=== PATIENT | female | born 1975 | race Caucasian/White ===

== ENCOUNTER 2017-07-18 15:20 | Inpatient (IN) | payer OTHER ==
[2017-07-18 18:03] VITALS: BMI 24.2
--- NOTE | 2017-07-18 20:42 | HP ---
Admission ROS [facility] Chief Complaint: Seeking admission to Rehab Allergies/Adverse Reactions: Allergies Allergy/AdvReac Type Severity Reaction Status Date / Time Penicillins Allergy Severe Hives Verified 07/18/17 19:35 History of Present Illness: 41 years old female with history of cocaine and heroin dependence is seeking admission to rehab. Patient has been to previous rehab and reports a year of sobriety. Denies suicidal ideation at this time. Patient has medical of heart murmur, asthma, arthritis and depression. Patient is on methadone 125mg oral daily at [facility]. Dose is yet to be verified by the nurse. - Ebola screening Have you traveled outside of the country in the last 21 days: No Have you had contact with anyone from an Ebola affected area: No Have you been sick,other than usual withdrawal symptoms: No - Review of Systems Constitutional: No Symptoms Reported EENT: reports: No Symptoms Reported Respiratory: reports: No Symptoms reported Cardiac: reports: No Symptoms Reported GI: reports: No Symptoms Reported : reports: No Symptoms Reported Musculoskeletal: reports: No Symptoms Reported Integumentary: reports: No Symptoms Reported Neuro: reports: No Symptoms reported Endocrine: reports: No Symptoms Reported Hematology: reports: No Symptoms Reported Psychiatric: reports: No Sypmtoms Reported, Mood/Affect Appropiate, Orientated x3 Other Systems: Reviewed and Negative Patient History - Patient Medical History Hx Anemia: No Hx Asthma: Yes (MDI) Hx Chronic Obstructive Pulmonary Disease (COPD): No Hx Cancer: No Hx Cardiac Disorders: No Hx Congestive Heart Failure: No Hx Hypertension: No Hx Hypercholesterolemia: No HX Cerebrovascular Accident: No Hx Seizures: No Hx Diabetes: No Hx Gastrointestinal Disorders: No Hx Liver Disease: No Hx Genitourinary Disorders: No Hx Sexually Transmitted Disorders: No Hx Renal Disease (ESRD): No Hx Thyroid Disease: No Hx Human Immunodeficiency Virus (HIV): No (Negative 2016) Hx Hepatitis C: No Hx Depression: Yes Hx Suicide Attempt: Yes (Denies suicidal ideation) Hx Bipolar Disorder: Yes Hx Schizophrenia: No - Patient Surgical History Past Surgical History: Yes Hx Neurologic Surgery: No Hx Cataract Extraction: No Hx Cardiac Surgery: No Hx Lung Surgery: No Hx Breast Surgery: No Hx Breast Biopsy: No Hx Abdominal Surgery: No Hx Appendectomy: No Hx Cholecystectomy: No Hx Genitourinary Surgery: No Hx Section: Yes (2002) Hx Orthopedic Surgery: Yes (facial surgery) Hx Hysterectomy: No Anesthesia Reaction: No - PPD History Previous Implant?: Yes Documented Results: Negative w/o proof Implanted On Prior [facility] Admission?: No PPD to be Administered?: Yes - Reproductive History Patient is a Female of Child Bearing Age (11 -55 yrs old): No Last Menstrual Period: 06/16/17 Patient : No - Smoking Cessation Smoking history: Current every day smoker Have you smoked in the past 12 months: Yes Aproximately how many cigarettes per day: 10 Hx Chewing Tobacco Use: No Initiated information on smoking cessation: Yes 'Breaking Loose' booklet given: 07/18/17 - Substance & Tx. History Hx Alcohol Use: No Hx Substance Use: Yes Substance Use Type: Cocaine, Heroin Hx Substance Use Treatment: Yes ([facility]) - Substances Abused Cocaine Route: Smoking Frequency: Daily Amount used: $100 Age of first use: 25 Date of Last Use: 07/17/17 Heroin Route: Smoking Frequency: No use in 30 days Age of first use: 25 Date of Last Use: 02/27/17 Family Disease History - Family Disease History Family History: Denies Admission Physical Exam [facility] - Vital Signs Vital Signs: Vital Signs - 24 hr 07/18/17 18:01 Temperature 98.5 F Pulse Rate 72 Respiratory 18 Rate Blood Pressure 112/72 - Physical General Appearance: Yes: Within Normal Limits HEENTM: Yes: EOMI, Normal ENT Inspection, Normal Voice, TEODORO Respiratory: Yes: Lungs Clear, Normal Breath Sounds, No Respiratory Distress Neck: Yes: Supple Breast: Yes: Breast Exam Deferred Cardiology: Yes: Regular Rhythm, Regular Rate, S1, S2 Abdominal: Yes: Within Normal Limits Genitourinary: Yes: Within Normal Limits Back: Yes: Normal Inspection Extremities: Yes: Within Normal Limits Neurological: Yes: Alert, Normal Mood/Affect, Normal Response Integumentary: Yes: Dry Lymphatic: Yes: Within Normal Limits - Diagnostic (1) Cocaine dependence, uncomplicated Current Visit: Yes Status: Chronic (2) Methadone maintenance therapy patient Current Visit: Yes Status: Chronic (3) Asthma Current Visit: Yes Status: Chronic (4) Arthritis Current Visit: Yes Status: Chronic (5) Depression Current Visit: Yes Status: Chronic (6) Heart murmur Current Visit: Yes Status: Chronic Cleared for Admission [facility] - Detox or Rehab [facility] Level of Care: Observation Bed Claeared for Rehab Admission: Yes [facility] Breath Alcohol Content Breath Alcohol Content: 0 Urine Pregancy Test - Result Urine Test Results: Negative- NO Line Present Urine Drug Screen - Results Drug Screen Negative: No Urine Drug Screen Results: ELEUTERIO-Cocaine, MTD-Methadone Inpatient Rehab Admission - Initial Determination Are CD services needed?: Yes Free of communicable disease: Yes Not in need of hospitalization: Yes - Rehab Admission Criteria Previous failed treatment: Yes Poor recovery environment: Yes Comorbidities: Yes Lacks judgement: No Patient is meeting Inpatient Rehab admission criteria:: Yes
[2017-07-18] MEDS ORDERED: guaiFENesin/D-METHORPHAN HB 10 ML UNIT-DOSE CUPS PO PRN (20:55)
[2017-07-18] MEDS ORDERED: MAGNESIUM CITRATE 300 ML BOTTLE PO PRN (20:55)
[2017-07-18] MEDS ORDERED: MAGNESIUM HYDROX 2400MG/30ML ORAL SUSPENSION 30 ML CUP PO PRN (20:55)
[2017-07-18] MEDS ORDERED: LOPERAMIDE HCL 2 MG CAPSULE PO PRN (20:55)
[2017-07-18] MEDS ORDERED: MENTHOL/PHENOL 1 EACH UD MM PRN (20:55)
[2017-07-18] MEDS ORDERED: NICOTINE POLACRILEX 2 MG GUM BC PRN (20:55)
[2017-07-18] MEDS ORDERED: P-EPHED 60MG/TRIPROLIDI 2.5MG TABLET PO PRN (20:55)
[2017-07-18] MEDS ORDERED: TUBERCULIN PPD 5 TU/0.1ML VIAL ID ONE (23:03)
[2017-07-18] MEDS: THIAMINE HCL 100 MG TABLET (FP) PO SCH (23:32)
[2017-07-18] MEDS: IBUPROFEN 400 MG TABLET (FP) PO PRN (23:33)
[2017-07-18 23:40] LABS: URINE APPEARANCE TURBID; URINE BILIRUBIN NEGATIVE (NEGATIVE); URINE BLOOD NEGATIVE (NEGATIVE); URINE COLOR YELLOW; URINE GLUCOSE (UA) NEGATIVE (NEGATIVE); URINE KETONE NEGATIVE (NEGATIVE); URINE LEUK ESTERASE TRACE (NEGATIVE); URINE NITRITE NEGATIVE (NEGATIVE); URINE UROBILINOGEN NEGATIVE mg/dL (0.2-1.0)
[2017-07-18 23:45] LABS: URINE PROTEIN 1+ (NEGATIVE)
[2017-07-19] MEDS ORDERED: METHADONE HCL 10 MG TABLET PO SCH (09:30)
[2017-07-19] MEDS ORDERED: METHADONE HCL 10 MG TABLET ONE (09:36)
[2017-07-19] MEDS ORDERED: METHADONE HCL 40 MG DISPERSABLE TABLET ONE (09:37)
[2017-07-19 09:52] LABS: HEMATOCRIT 38.2 % (32.4-45.2); HEMOGLOBIN 12.1 GM/dL (10.7-15.3); MCH 28.5 pg (25.7-33.7); MCHC 31.5 g/dl (32.0-36.0); MEAN CELL VOLUME 90.2 fl (80-96); MEAN PLT VOLUME 8.2 fl (7.5-11.1); PLATELET COUNT 252 K/MM3 (134-434); RBC 4.24 M/mm3 (3.60-5.2); RDW 15.2 % (11.6-15.6); WHITE BLOOD COUNT 5.2 K/mm3 (4.0-10.0)
[2017-07-19] MEDS: NICOTINE 14 MG/24 HOURS TOPICAL PATCH TD SCH (09:57)
[2017-07-19] MEDS: PRENATAL VITAMINS W/ FOLIC ACID TABLET (FP) PO SCH (09:57)
[2017-07-19 10:02] LABS: ALBUMIN 3.1 g/dl (3.4-5.0); ANION GAP 6 (8-16); BLOOD UREA NITROGEN 13 mg/dL (7-18); CALCIUM 8.5 mg/dL (8.5-10.1); CHLORIDE 105 mmol/L (98-107); CO2 29 mmol/L (21-32); GLUCOSE,RANDOM 69 mg/dL (74-106); POTASSIUM 4.4 mmol/L (3.5-5.1); SODIUM 140 mmol/L (136-145)
[2017-07-19 10:07] LABS: ALK PHOS 88 U/L (45-117); BILIRUBIN,TOTAL 0.3 mg/dL (0.2-1.0); CREATININE 0.7 mg/dL (0.55-1.02); SGOT/AST 27 U/L (15-37); SGPT/ALT 21 U/L (12-78); TOT PROT 6.4 g/dl (6.4-8.2)
[2017-07-19] MEDS ORDERED: METHADONE 120 MG, METHADONE 5 MG PO SCH (10:30)
--- NOTE | 2017-07-19 15:26 | EKG ---
Test Reason : Blood Pressure : / mmHG Vent. Rate : 075 BPM Atrial Rate : 075 BPM P-R Int : 124 ms QRS Dur : 086 ms QT Int : 402 ms P-R-T Axes : 061 047 058 degrees QTc Int : 448 ms NORMAL SINUS RHYTHM NORMAL ECG NO PREVIOUS ECGS AVAILABLE Confirmed by Colton Shafer ([id number]) on 07/19/2017 3:26:22 PM Referred By: Confirmed By:Colton Shafer
[2017-07-19] MEDS: IBUPROFEN 400 MG TABLET (FP) PO PRN (16:53)
[2017-07-19] MEDS: THIAMINE HCL 100 MG TABLET (FP) PO SCH (21:17)
[2017-07-20] MEDS ORDERED: METHADONE HCL 5 MG TABLET ONE (05:19)
[2017-07-20] MEDS ORDERED: METHADONE HCL 40 MG DISPERSABLE TABLET ONE (05:20)
[2017-07-20] MEDS: METHADONE 120 MG, METHADONE 5 MG PO SCH (06:20)
[2017-07-20] MEDS: NICOTINE 14 MG/24 HOURS TOPICAL PATCH TD SCH (09:37)
[2017-07-20] MEDS: PRENATAL VITAMINS W/ FOLIC ACID TABLET (FP) PO SCH (09:37)
[2017-07-20] MEDS: THIAMINE HCL 100 MG TABLET (FP) PO SCH (21:23)
[2017-07-21] MEDS ORDERED: METHADONE HCL 5 MG TABLET ONE (03:11)
[2017-07-21] MEDS ORDERED: METHADONE HCL 40 MG DISPERSABLE TABLET ONE (03:11)
[2017-07-21] MEDS: METHADONE 120 MG, METHADONE 5 MG PO SCH (06:27)
[2017-07-21] MEDS: PRENATAL VITAMINS W/ FOLIC ACID TABLET (FP) PO SCH (09:43)
[2017-07-21] MEDS: NICOTINE 14 MG/24 HOURS TOPICAL PATCH TD SCH (09:43)
[2017-07-21] MEDS: IBUPROFEN 400 MG TABLET (FP) PO PRN (09:44)
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
[2017-07-21] MEDS: DULoxetine HCL 30 MG CAPSULE.DR (FP) PO SCH (12:04)
[2017-07-21] MEDS: THIAMINE HCL 100 MG TABLET (FP) PO SCH (21:24)
[2017-07-21] MEDS: QUEtiapine FUMARATE 50 MG TABLET PO SCH (21:25)
[2017-07-22] MEDS ORDERED: METHADONE HCL 5 MG TABLET ONE (03:23)
[2017-07-22] MEDS ORDERED: METHADONE HCL 40 MG DISPERSABLE TABLET ONE (03:23)
[2017-07-22] MEDS: METHADONE 120 MG, METHADONE 5 MG PO SCH (06:28)
[2017-07-22] MEDS: DULoxetine HCL 30 MG CAPSULE.DR (FP) PO SCH (10:06)
[2017-07-22] MEDS: NICOTINE 14 MG/24 HOURS TOPICAL PATCH TD SCH (10:06)
[2017-07-22] MEDS: PRENATAL VITAMINS W/ FOLIC ACID TABLET (FP) PO SCH (10:06)
[2017-07-22] MEDS: THIAMINE HCL 100 MG TABLET (FP) PO SCH (21:07)
[2017-07-22] MEDS: QUEtiapine FUMARATE 50 MG TABLET PO SCH (21:07)
[2017-07-23] MEDS ORDERED: METHADONE HCL 5 MG TABLET ONE (03:14)
[2017-07-23] MEDS ORDERED: METHADONE HCL 40 MG DISPERSABLE TABLET ONE (03:15)
[2017-07-23] MEDS: METHADONE 120 MG, METHADONE 5 MG PO SCH (06:27)
[2017-07-23] MEDS: DULoxetine HCL 30 MG CAPSULE.DR (FP) PO SCH (09:56)
[2017-07-23] MEDS: NICOTINE 14 MG/24 HOURS TOPICAL PATCH TD SCH (09:56)
[2017-07-23] MEDS: PRENATAL VITAMINS W/ FOLIC ACID TABLET (FP) PO SCH (09:56)
[2017-07-23] MEDS: THIAMINE HCL 100 MG TABLET (FP) PO SCH (21:18)
[2017-07-23] MEDS: QUEtiapine FUMARATE 50 MG TABLET PO SCH (21:18)
[2017-07-24] MEDS ORDERED: METHADONE HCL 40 MG DISPERSABLE TABLET ONE (03:21)
[2017-07-24] MEDS ORDERED: METHADONE HCL 5 MG TABLET ONE (03:21)
[2017-07-24] MEDS: METHADONE 120 MG, METHADONE 5 MG PO SCH (06:26)
[2017-07-24] MEDS: PRENATAL VITAMINS W/ FOLIC ACID TABLET (FP) PO SCH (09:55)
[2017-07-24] MEDS: DULoxetine HCL 30 MG CAPSULE.DR (FP) PO SCH (09:55)
[2017-07-24] MEDS: NICOTINE 14 MG/24 HOURS TOPICAL PATCH TD SCH (09:55)
[2017-07-24] MEDS: THIAMINE HCL 100 MG TABLET (FP) PO SCH (21:19)
[2017-07-24] MEDS: QUEtiapine FUMARATE 50 MG TABLET PO SCH (21:19)
[2017-07-25] MEDS ORDERED: METHADONE HCL 5 MG TABLET ONE (06:22)
[2017-07-25] MEDS: METHADONE 120 MG, METHADONE 5 MG PO SCH (06:23)
[2017-07-25] MEDS ORDERED: METHADONE HCL 40 MG DISPERSABLE TABLET ONE (06:23)
[2017-07-25] MEDS: NICOTINE 14 MG/24 HOURS TOPICAL PATCH TD SCH (10:12)
[2017-07-25] MEDS: PRENATAL VITAMINS W/ FOLIC ACID TABLET (FP) PO SCH (10:12)
[2017-07-25] MEDS: DULoxetine HCL 30 MG CAPSULE.DR (FP) PO SCH (10:12)
[2017-07-25] MEDS: THIAMINE HCL 100 MG TABLET (FP) PO SCH (21:17)
[2017-07-25] MEDS: QUEtiapine FUMARATE 50 MG TABLET PO SCH (21:17)
[2017-07-26] MEDS ORDERED: METHADONE HCL 5 MG TABLET ONE (03:14)
[2017-07-26] MEDS ORDERED: METHADONE HCL 40 MG DISPERSABLE TABLET ONE (03:15)
[2017-07-26] MEDS: METHADONE 120 MG, METHADONE 5 MG PO SCH (06:32)
[2017-07-26] MEDS: NICOTINE 14 MG/24 HOURS TOPICAL PATCH TD SCH (10:04)
[2017-07-26] MEDS: DULoxetine HCL 30 MG CAPSULE.DR (FP) PO SCH (10:04)
[2017-07-26] MEDS: PRENATAL VITAMINS W/ FOLIC ACID TABLET (FP) PO SCH (10:04)
[2017-07-26] MEDS: THIAMINE HCL 100 MG TABLET (FP) PO SCH (21:30)
[2017-07-26] MEDS: QUEtiapine FUMARATE 50 MG TABLET PO SCH (21:30)
[2017-07-27] MEDS ORDERED: METHADONE HCL 40 MG DISPERSABLE TABLET ONE (03:21)
[2017-07-27] MEDS ORDERED: METHADONE HCL 5 MG TABLET ONE (03:21)
[2017-07-27] MEDS: METHADONE 120 MG, METHADONE 5 MG PO SCH (06:37)
[2017-07-27] MEDS: DULoxetine HCL 30 MG CAPSULE.DR (FP) PO SCH (10:02)
[2017-07-27] MEDS: NICOTINE 14 MG/24 HOURS TOPICAL PATCH TD SCH (10:02)
[2017-07-27] MEDS: PRENATAL VITAMINS W/ FOLIC ACID TABLET (FP) PO SCH (10:02)
[2017-07-27] MEDS: QUEtiapine FUMARATE 50 MG TABLET PO SCH (21:16)
[2017-07-27] MEDS: THIAMINE HCL 100 MG TABLET (FP) PO SCH (21:16)
[2017-07-28] MEDS ORDERED: METHADONE HCL 40 MG DISPERSABLE TABLET ONE (03:13)
[2017-07-28] MEDS ORDERED: METHADONE HCL 5 MG TABLET ONE (03:13)
[2017-07-28] MEDS: METHADONE 120 MG, METHADONE 5 MG PO SCH (06:34)
[2017-07-28] MEDS: NICOTINE 14 MG/24 HOURS TOPICAL PATCH TD SCH (09:59)
[2017-07-28] MEDS: PRENATAL VITAMINS W/ FOLIC ACID TABLET (FP) PO SCH (09:59)
[2017-07-28] MEDS: DULoxetine HCL 30 MG CAPSULE.DR (FP) PO SCH (09:59)
[2017-07-28] MEDS: THIAMINE HCL 100 MG TABLET (FP) PO SCH (21:19)
[2017-07-28] MEDS: QUEtiapine FUMARATE 50 MG TABLET PO SCH (21:19)
[2017-07-29] MEDS ORDERED: METHADONE HCL 5 MG TABLET ONE (05:48)
[2017-07-29] MEDS ORDERED: METHADONE HCL 40 MG DISPERSABLE TABLET ONE (05:48)
[2017-07-29] MEDS: METHADONE 120 MG, METHADONE 5 MG PO SCH (06:20)
[2017-07-29] MEDS: DULoxetine HCL 30 MG CAPSULE.DR (FP) PO SCH (10:09)
[2017-07-29] MEDS: NICOTINE 14 MG/24 HOURS TOPICAL PATCH TD SCH (10:09)
[2017-07-29] MEDS: PRENATAL VITAMINS W/ FOLIC ACID TABLET (FP) PO SCH (10:09)
[2017-07-29] MEDS: THIAMINE HCL 100 MG TABLET (FP) PO SCH (21:22)
[2017-07-29] MEDS: QUEtiapine FUMARATE 50 MG TABLET PO SCH (21:22)
[2017-07-30] MEDS ORDERED: METHADONE HCL 5 MG TABLET ONE (03:30)
[2017-07-30] MEDS ORDERED: METHADONE HCL 40 MG DISPERSABLE TABLET ONE (03:31)
[2017-07-30] MEDS: METHADONE 120 MG, METHADONE 5 MG PO SCH (06:15)
[2017-07-30] MEDS: DULoxetine HCL 30 MG CAPSULE.DR (FP) PO SCH (09:55)
[2017-07-30] MEDS: PRENATAL VITAMINS W/ FOLIC ACID TABLET (FP) PO SCH (09:55)
[2017-07-30] MEDS: hydrOXYzine PAMOATE 50 MG CAPSULE (FP) PO PRN (09:55)
[2017-07-30] MEDS: NICOTINE 14 MG/24 HOURS TOPICAL PATCH TD SCH (09:56)
[2017-07-30] MEDS: QUEtiapine FUMARATE 50 MG TABLET PO SCH (21:22)
[2017-07-30] MEDS: THIAMINE HCL 100 MG TABLET (FP) PO SCH (21:22)
[2017-07-31] MEDS ORDERED: METHADONE HCL 5 MG TABLET ONE (02:53)
[2017-07-31] MEDS ORDERED: METHADONE HCL 40 MG DISPERSABLE TABLET ONE (02:53)
[2017-07-31] MEDS: METHADONE 120 MG, METHADONE 5 MG PO SCH (06:43)
[2017-07-31] MEDS: NICOTINE 14 MG/24 HOURS TOPICAL PATCH TD SCH (10:04)
[2017-07-31] MEDS: PRENATAL VITAMINS W/ FOLIC ACID TABLET (FP) PO SCH (10:04)
[2017-07-31] MEDS: DULoxetine HCL 30 MG CAPSULE.DR (FP) PO SCH (10:04)
[2017-07-31] MEDS: hydrOXYzine PAMOATE 50 MG CAPSULE (FP) PO PRN (10:05)
[2017-07-31] MEDS: THIAMINE HCL 100 MG TABLET (FP) PO SCH (21:15)
[2017-07-31] MEDS: QUEtiapine FUMARATE 50 MG TABLET PO SCH (21:15)
[2017-08-01] MEDS ORDERED: METHADONE HCL 5 MG TABLET ONE (06:12)
[2017-08-01] MEDS ORDERED: METHADONE HCL 40 MG DISPERSABLE TABLET ONE (06:13)
[2017-08-01] MEDS: METHADONE 120 MG, METHADONE 5 MG PO SCH (06:30)
[2017-08-01] MEDS: DULoxetine HCL 30 MG CAPSULE.DR (FP) PO SCH (10:25)
[2017-08-01] MEDS: PRENATAL VITAMINS W/ FOLIC ACID TABLET (FP) PO SCH (10:25)
[2017-08-01] MEDS: NICOTINE 14 MG/24 HOURS TOPICAL PATCH TD SCH (10:25)
[2017-08-01] MEDS: SIMETHICONE 80 MG TAB.CHEW (FP) PO PRN (19:35)
[2017-08-01] MEDS: THIAMINE HCL 100 MG TABLET (FP) PO SCH (21:27)
[2017-08-01] MEDS: QUEtiapine FUMARATE 50 MG TABLET PO SCH (21:28)
[2017-08-02] MEDS ORDERED: METHADONE HCL 40 MG DISPERSABLE TABLET ONE (05:48)
[2017-08-02] MEDS ORDERED: METHADONE HCL 5 MG TABLET ONE (05:48)
[2017-08-02] MEDS: METHADONE 120 MG, METHADONE 5 MG PO SCH (06:28)
[2017-08-02] MEDS: SIMETHICONE 80 MG TAB.CHEW (FP) PO PRN (06:28)
[2017-08-02] MEDS: ACETAMINOPHEN 325 MG TABLET (FP) PO PRN ×2 (09:02→21:14)
[2017-08-02] MEDS: DULoxetine HCL 30 MG CAPSULE.DR (FP) PO SCH (10:07)
[2017-08-02] MEDS: NICOTINE 14 MG/24 HOURS TOPICAL PATCH TD SCH (10:07)
[2017-08-02] MEDS: PRENATAL VITAMINS W/ FOLIC ACID TABLET (FP) PO SCH (10:07)
[2017-08-02] MEDS: MAG HYDROX/AL HYDROX/SIMETH 30 ML UNIT-DOSE CUP PO PRN ×2 (12:43→19:37)
[2017-08-02] MEDS: QUEtiapine FUMARATE 50 MG TABLET PO SCH (21:13)
[2017-08-02] MEDS: THIAMINE HCL 100 MG TABLET (FP) PO SCH (21:13)
[2017-08-03] MEDS ORDERED: METHADONE HCL 40 MG DISPERSABLE TABLET ONE (05:46)
[2017-08-03] MEDS ORDERED: METHADONE HCL 5 MG TABLET ONE (05:46)
[2017-08-03] MEDS ORDERED: SODIUM PHOSPHATE/NA BIPHOS 133 ML ENEMA PR ONE (07:37)
[2017-08-03] MEDS ORDERED: ONDANSETRON *ODT* 4 MG TABLET SL PRN (07:40)
--- NOTE | 2017-08-03 07:46 | PN ---
[facility] Progress Note (SOAP) Subjective: ASKED TO SEE PATIENT FOR C/O ABD PAIN, NAUSEA C.P AND CONSTIPATION. PT C/O STOMACH PAINS POINT TO R AND LEFT UPPER QUADRANTS, FLATULENCE AND BURPING. HAS NOT HAS BM X2 DAYS LAST BM WAS HARD. MOM GIVEN YESTERDAY W/O RELIEF. DENIES C.P. SOB, RECTAL BLEEDING, VOMITING Objective: 08/03/17 07:44 AWAKE, ALERT, CRYING ASKING FOR HER METHADONE ABD, +BS X4 ND/NT NO REBOUND TENDERNES A LITTLE GAURDED Vital Signs - 24 hr 08/03/17 08/03/17 00:30 07:13 Temperature 99.5 F Pulse Rate 93 H Respiratory 16 18 Rate Blood Pressure 135/91 Assessment: 08/03/17 07:46 CONSTIPATION Plan: INCREASE PO HYDRATION ZOFRAN FLEETS ENEMA KUB COLACE ORDERED CONT TO MONITOR FOR WORSENING SX'S
[2017-08-03] MEDS: METHADONE 120 MG, METHADONE 5 MG PO SCH (08:27)
[2017-08-03] MEDS: ACETAMINOPHEN 325 MG TABLET (FP) PO PRN ×2 (08:29→21:16)
[2017-08-03] MEDS: PRENATAL VITAMINS W/ FOLIC ACID TABLET (FP) PO SCH (09:35)
[2017-08-03] MEDS: DULoxetine HCL 30 MG CAPSULE.DR (FP) PO SCH (09:35)
[2017-08-03] MEDS: NICOTINE 14 MG/24 HOURS TOPICAL PATCH TD SCH (09:35)
[2017-08-03] MEDS: QUEtiapine FUMARATE 50 MG TABLET PO SCH (21:15)
[2017-08-03] MEDS: THIAMINE HCL 100 MG TABLET (FP) PO SCH (21:15)
[2017-08-03] MEDS: DOCUSATE SODIUM 100 MG CAPSULE (FP) PO SCH (21:17)
[2017-08-04] MEDS ORDERED: METHADONE HCL 5 MG TABLET ONE (03:20)
[2017-08-04] MEDS ORDERED: METHADONE HCL 40 MG DISPERSABLE TABLET ONE (03:20)
[2017-08-04] MEDS: METHADONE 120 MG, METHADONE 5 MG PO SCH (06:29)
[2017-08-04] MEDS: NICOTINE 14 MG/24 HOURS TOPICAL PATCH TD SCH (10:00)
[2017-08-04] MEDS: PRENATAL VITAMINS W/ FOLIC ACID TABLET (FP) PO SCH (10:00)
[2017-08-04] MEDS: DULoxetine HCL 30 MG CAPSULE.DR (FP) PO SCH (10:00)
[2017-08-04] MEDS: ACETAMINOPHEN 325 MG TABLET (FP) PO PRN (10:01)
[2017-08-04] MEDS ORDERED: MAGNESIUM CITRATE 300 ML BOTTLE PO ONE (15:42)
[2017-08-04] MEDS: THIAMINE HCL 100 MG TABLET (FP) PO SCH (21:23)
[2017-08-04] MEDS: DOCUSATE SODIUM 100 MG CAPSULE (FP) PO SCH (21:23)
[2017-08-04] MEDS: QUEtiapine FUMARATE 50 MG TABLET PO SCH (21:23)
[2017-08-04] MEDS: SENNOSIDES 8.6MG TABLET (FP) PO SCH (21:24)
[2017-08-05] MEDS ORDERED: METHADONE HCL 40 MG DISPERSABLE TABLET ONE (03:09)
[2017-08-05] MEDS ORDERED: METHADONE HCL 5 MG TABLET ONE (03:09)
[2017-08-05] MEDS: METHADONE 120 MG, METHADONE 5 MG PO SCH (06:20)
[2017-08-05] MEDS: PRENATAL VITAMINS W/ FOLIC ACID TABLET (FP) PO SCH (09:36)
[2017-08-05] MEDS: NICOTINE 14 MG/24 HOURS TOPICAL PATCH TD SCH (09:36)
[2017-08-05] MEDS: DULoxetine HCL 30 MG CAPSULE.DR (FP) PO SCH (09:36)
[2017-08-05] MEDS: SENNOSIDES 8.6MG TABLET (FP) PO SCH ×2 (10:18→21:13)
[2017-08-05] MEDS: QUEtiapine FUMARATE 50 MG TABLET PO SCH (21:13)
[2017-08-05] MEDS: DOCUSATE SODIUM 100 MG CAPSULE (FP) PO SCH (21:13)
[2017-08-05] MEDS: THIAMINE HCL 100 MG TABLET (FP) PO SCH (21:13)
[2017-08-06] MEDS ORDERED: METHADONE HCL 5 MG TABLET ONE (03:07)
[2017-08-06] MEDS ORDERED: METHADONE HCL 40 MG DISPERSABLE TABLET ONE (03:08)
[2017-08-06] MEDS: METHADONE 120 MG, METHADONE 5 MG PO SCH (06:51)
[2017-08-06] MEDS: PRENATAL VITAMINS W/ FOLIC ACID TABLET (FP) PO SCH (09:58)
[2017-08-06] MEDS: SENNOSIDES 8.6MG TABLET (FP) PO SCH ×2 (09:59→21:20)
[2017-08-06] MEDS: DULoxetine HCL 30 MG CAPSULE.DR (FP) PO SCH (09:59)
[2017-08-06] MEDS: NICOTINE 14 MG/24 HOURS TOPICAL PATCH TD SCH (09:59)
[2017-08-06] MEDS: QUEtiapine FUMARATE 50 MG TABLET PO SCH (21:20)
[2017-08-06] MEDS: THIAMINE HCL 100 MG TABLET (FP) PO SCH (21:20)
[2017-08-06] MEDS: DOCUSATE SODIUM 100 MG CAPSULE (FP) PO SCH (21:21)
[2017-08-07] MEDS ORDERED: METHADONE HCL 5 MG TABLET ONE (06:40)
[2017-08-07] MEDS ORDERED: METHADONE HCL 40 MG DISPERSABLE TABLET ONE (06:40)
[2017-08-07] MEDS: METHADONE 120 MG, METHADONE 5 MG PO SCH (06:41)
[2017-08-07] MEDS: PRENATAL VITAMINS W/ FOLIC ACID TABLET (FP) PO SCH (10:00)
[2017-08-07] MEDS: SENNOSIDES 8.6MG TABLET (FP) PO SCH ×2 (10:00→21:24)
[2017-08-07] MEDS: NICOTINE 14 MG/24 HOURS TOPICAL PATCH TD SCH (10:00)
[2017-08-07] MEDS: DULoxetine HCL 30 MG CAPSULE.DR (FP) PO SCH (10:00)
[2017-08-07] MEDS: THIAMINE HCL 100 MG TABLET (FP) PO SCH (21:24)
[2017-08-07] MEDS: QUEtiapine FUMARATE 50 MG TABLET PO SCH (21:24)
[2017-08-07] MEDS: DOCUSATE SODIUM 100 MG CAPSULE (FP) PO SCH (21:24)
[2017-08-07] MEDS: hydrOXYzine PAMOATE 50 MG CAPSULE (FP) PO PRN (21:25)
[2017-08-07] MEDS: MAG HYDROX/AL HYDROX/SIMETH 30 ML UNIT-DOSE CUP PO PRN (21:25)
[2017-08-08] MEDS ORDERED: METHADONE HCL 5 MG TABLET ONE (05:52)
[2017-08-08] MEDS ORDERED: METHADONE HCL 40 MG DISPERSABLE TABLET ONE (05:52)
[2017-08-08] MEDS: METHADONE 120 MG, METHADONE 5 MG PO SCH (06:34)
[2017-08-08 07:39] VITALS: BP 110/73; PULSE 68; TEMP 98
--- NOTE | 2017-08-08 09:21 | PN ---
Psychiatric Progress Note Vital Signs: Vital Signs Period Temp Pulse Resp BP Sys/Goodwin Pulse Ox Last 24 Hr 98.0 F 68 16-18 110/73 Date of Session: 08/08/17 Chief Complaint:: Discharge visit HPI: Cocaine and opioid dependence comorbid with PTSD,Bipolar disorder. ROS: Significant for ,Ostheoarthritis,BA. Current Medications: Active Medications Generic Name Dose Route Start Last Admin Trade Name Freq PRN Reason Stop Dose Admin Acetaminophen 650 mg 07/18/17 20:55 08/04/17 10:01 Tylenol - PO 650 mg Q4H PRN Administration FEVER Al Hydroxide/Mg Hydroxide 30 ml 07/18/17 20:55 08/07/17 21:25 Mylanta Oral Suspension - PO 30 ml Q6H PRN Administration DYSPEPSIA Docusate Sodium 300 mg 08/03/17 22:00 08/07/17 21:24 Colace - PO 300 mg HS LUCINDA Administration Duloxetine HCl 30 mg 07/21/17 11:48 08/07/17 10:00 Cymbalta - PO 30 mg DAILY LUCINDA Administration Eucalyptus/Menthol/Phenol/Sorbitol 1 each 07/18/17 20:55 Cepastat Lozenge - MM Q4H PRN SORE THROAT Guaifenesin 10 ml 07/18/17 20:55 Robitussin Dm - PO Q6H PRN COUGH Hydroxyzine Pamoate 50 mg 07/21/17 11:13 08/07/17 21:25 Vistaril - PO 50 mg Q4H PRN Administration ANXIETY Ibuprofen 400 mg 07/18/17 20:55 07/21/17 09:44 Motrin - PO 400 mg Q6H PRN Administration Pain level 4-6 Loperamide HCl 4 mg 07/18/17 20:55 Imodium - PO Q6H PRN DIARRHEA Magnesium Citrate 300 ml 07/18/17 20:55 Citroma - PO Q48H PRN CONSTIPATION Magnesium Hydroxide 30 ml 07/18/17 20:55 08/03/17 03:58 Milk Of Magnesia - PO 30 ml DAILY PRN Administration CONSTIPATION Methadone HCl 120 mg/ 125 mg 08/07/17 06:00 08/08/17 06:34 Methadone HCl 5 mg PO 08/14/17 05:59 125 mg DAILY@0600 LUCINDA Administration Nicotine 14 mg 07/19/17 10:00 08/07/17 10:00 Nicoderm Patch - TD 14 mg DAILY LUCINDA Administration Nicotine Polacrilex 2 mg 07/18/17 20:55 Nicorette Gum - BC Q2H PRN NICOTINE REPLACEMENT RX Ondansetron HCl 4 mg 08/03/17 07:40 08/03/17 07:52 Zofran Odt - SL 4 mg Q8H PRN Administration NAUSEA Multivit/Folic Acid/Iron 1 tab 07/19/17 10:00 08/07/17 10:00 Vitamins (Sjr) - PO 1 tab DAILY LUCINDA Administration Pseudoephedrine/Triprolidine 1 combo 07/18/17 20:55 Actifed - PO TID PRN NASAL CONGESTION Quetiapine Fumarate 50 mg 07/21/17 22:00 08/07/17 21:24 Seroquel - PO 50 mg HS LUCINDA Administration Senna 1 tab 08/04/17 22:00 08/07/17 21:24 Senna - PO 1 tab BID LUCINDA Administration Simethicone 80 mg 08/01/17 18:42 08/02/17 06:28 Mylicon - PO 80 mg Q6H PRN Administration GAS Thiamine HCl 100 mg 07/18/17 22:00 08/07/17 21:24 Vitamin B1 - PO 100 mg HS LUCINDA Administration Current Side Effect: No Lab tests ordered: No Lab tests reviewed: Yes Provider note:: Patient completed this program today.She has met her treatment goals and will continue to address her issues on outpatient basis at [facility].patient will continue her current medications:Cymbalta 30 mg po daily and Seroquel 50 mg po hs.scripts for 30 days provided. Supportive therapy provided focusing on relapse prevention,including coping skills,support utilization to maintain recovery. Patient is stable for discharge today. Total face to face time:: 30 Mental Status Exam - Mental Status Exam Alert and Oriented to: Time, Place, Person Cognitive Function: Grossly Intact Patient Appearance: Well Groomed Mood: Euthymic Affect: Mood Congruent Patient Behavior: Cooperative Speech Pattern: Clear Voice Loudness: Normal Thought Process: Goal Oriented Thought Disorder: Not Present Hallucinations: Denies Suicidal Ideation: Denies Homicidal Ideation: Denies Insight/Judgement: Fair Sleep: Fair Appetite: Good Muscle strength/Tone: Normal Gait/Station: Normal Psychiatric Treatment Plan - Problem List (1) Arthritis Current Visit: Yes (2) Asthma Current Visit: Yes (3) Cocaine dependence, uncomplicated Current Visit: Yes (4) Methadone maintenance therapy patient Current Visit: Yes (5) Opioid dependence Current Visit: Yes (6) Bipolar II disorder Current Visit: Yes (7) PTSD (post-traumatic stress disorder) Current Visit: Yes
[2017-08-08] MEDS: SENNOSIDES 8.6MG TABLET (FP) PO SCH (09:43)
[2017-08-08] MEDS: PRENATAL VITAMINS W/ FOLIC ACID TABLET (FP) PO SCH (09:43)
[2017-08-08] MEDS: NICOTINE 14 MG/24 HOURS TOPICAL PATCH TD SCH (09:43)
[2017-08-08] MEDS: DULoxetine HCL 30 MG CAPSULE.DR (FP) PO SCH (09:43)
[2017-08-08] MEDS: hydrOXYzine PAMOATE 50 MG CAPSULE (FP) PO PRN (09:44)
== END 2017-08-08 10:25 | disposition home or self-care (01) | DRG 772 ==
LOC: YASAS 15:20 → Y3E 20:19
PROVIDERS: ADMIT Psychiatry & Neurology Psychiatry; ATTEND Psychiatry & Neurology Psychiatry
PROC: HZ42ZZZ Group Counseling for Substance Abuse Treatment, Cognitive-Behavioral (ICD-10-PCS; principal; 2017-07-18)
DX: F14.20 Cocaine dependence, uncomplicated (principal); F11.20 Opioid dependence, uncomplicated; F17.210 Nicotine dependence, cigarettes, uncomplicated; F31.81 Bipolar II disorder; F43.10 Post-traumatic stress disorder, unspecified; J45.909 Unspecified asthma, uncomplicated; M19.90 Unspecified osteoarthritis, unspecified site; K59.00 Constipation, unspecified; R01.1 Cardiac murmur, unspecified; Z88.0 Allergy status to penicillin
CPT/HCPCS: 36415; 74018-TC-FY; 80053; 81003; 81015; 85027; 86593; 93005; 93010